=== PATIENT | female | born 1990 | race African-American/Black ===

== ENCOUNTER 2016-11-20 20:16 | Emergency (ER) | payer SELFPAY ==
[2016-11-20 20:23] VITALS: TEMP 99.3; BMI 25.7
[2016-11-20 22:30] LABS: URINE APPEARANCE CLEAR; URINE BILIRUBIN NEGATIVE (NEGATIVE); URINE BLOOD NEGATIVE (NEGATIVE); URINE COLOR DKYELLOW; URINE GLUCOSE (UA) NEGATIVE (NEGATIVE); URINE KETONE TRACE (NEGATIVE); URINE NITRITE NEGATIVE (NEGATIVE); URINE UROBILINOGEN 2.0 E.U/dl E.U./dl (0.2-1.0)
[2016-11-20 22:46] LABS: URINE LEUK ESTERASE TRACE (NEGATIVE); URINE PROTEIN 1+ (NEGATIVE)
[2016-11-20 22:50] LABS: URINE MUCUS MANY; URINE RBC 6 /hpf (0-3); URINE WBC 2 /hpf (3-5)
--- NOTE | 2016-11-20 22:55 | PDOC ---
History of Present Illness - General Chief Complaint: Sore Throat Stated Complaint: BODY ACHE/CHEST TIGHTNESS/COUGH/SORE THROAT Time Seen by Provider: 11/20/16 21:35 History Source: Patient Exam Limitations: No Limitations - History of Present Illness Initial Comments: 11/20/16 22:52 26yo Female patient presents to ED c/o sore throat, body aches, and subjective fever which began on Wednesday. Patient states she took NyQuil last night with minimal relief. Patient reports LNMP: 4-5 months ago, and that she recently had an last week. She denies CP, Abd pain, back pain, n/v/d, vaginal bleeding or any other complaints at this time. Neg flu vaccination reported. Timing/Duration: reports: week Severity: reports: moderate Possible Cause: Yes: no prior episodes Associated Symptoms: reports: cough, fever/chills, nasal congestion, sore throat. denies: chest pain/soreness, dizziness, earache, facial pain, headache , lightheadedness, muscle aches, nasal drainage, shortness of breath, sinus infection, wheezing, other Past History - Travel Traveled outside of the country in the last 30 days: No Close contact w/someone who was outside of country & ill: No - Past Medical History Allergies/Adverse Reactions: Allergies Allergy/AdvReac Type Severity Reaction Status Date / Time No Known Allergies Allergy Verified 11/20/16 20:21 Home Medications: Ambulatory Orders Naproxen [Naprosyn -] 500 mg PO BID #14 tablet 08/02/16 Azithromycin [Zithromax -] 250 mg PO DAILY #4 tablet 11/21/16 Asthma: Yes - Psycho/Social/Smoking Cessation Hx Suicidal Ideation: No Smoking History: Current every day smoker Number of Cigarettes Smoked Daily: 5 Information on smoking cessation initiated: No 'Breaking Loose' booklet given: 08/02/16 Respiratory Specific PMHX - Complaint Specific PMHX Angina: No Bronchitis: No Pneumonia: No Pulmonary Embolus: No TB (Tuberculosis): No Review of Systems - Review of Systems Able to Perform ROS?: Yes Is the patient limited [place]ander proficient: No Constitutional: Yes: Fever. No: Chills HEENTM: Yes: Nose Congestion, Throat Pain Respiratory: Yes: Cough. No: Orthopnea, Shortness of Breath, SOB at Rest, Stridor, Wheezing, Hemoptysis Cardiac (ROS): No: Chest Pain, Edema, Lightheadedness, Palpitations, Syncope, Chest Tightness ABD/GI: No: Blood Streaked Bowels, Constipated, Diarrhea, Nausea, Poor Appetite , Poor Fluid Intake, Rectal Bleeding, Vomiting : No: Burning, Dysuria, Discharge, Flank Pain, Hematuria, Pain Musculoskeletal: No: Back Pain, Neck Pain Integumentary: No: Bruising, Erythema, Rash Neurological: No: Headache, Numbness, Paresthesia, Seizure, Tremors, Weakness, Ataxia, Dizziness All Other Systems: Reviewed and Negative *Physical Exam - Vital Signs Last Vital Signs Temp Pulse Resp BP Pulse Ox 99.3 F 114 H 18 130/71 100 11/20/16 20:21 11/20/16 20:21 11/20/16 20:21 11/20/16 20:21 11/20/16 20:21 - Physical Exam General Appearance: Yes: Nourished, Appropriately Dressed. No: Apparent Distress, Mild Distress, Moderate Distress, Severe Distress HEENT: positive: EOMI, CLARE, Normal ENT Inspection, Normal Voice, Symmetrical, TMs Normal, Pharynx Normal, Nasal Congestion. negative: Pharyngeal Erythema, Tonsillar Exudate, Tonsillar Erythema, Rhinorrhea, TM Bulging, TM Dull, TM Erythema Neck: positive: Trachea midline, Supple. negative: Stridor, Lymphadenopathy (R) , Lymphadenopathy (L) Respiratory/Chest: positive: Lungs Clear, Normal Breath Sounds. negative: Respiratory Distress, Accessory Muscle Use, Labored Respiration, Rapid RR, Rhonchi, Stridor, Wheezing Cardiovascular: positive: Regular Rhythm, Regular Rate. negative: JVD, Murmur Gastrointestinal/Abdominal: positive: Normal Bowel Sounds. negative: Soft, Distended, Guarding, Rebound, Tenderness Musculoskeletal: positive: Normal Inspection. negative: CVA Tenderness, Decreased Range of Motion Extremity: positive: Normal Capillary Refill, Normal Inspection, Normal Range of Motion. negative: Swelling, Calf Tenderness, Erythema, Inflammation Integumentary: positive: Normal Color, Dry, Warm. negative: Rash, Swelling, Bruising Neurologic: positive: clinical education academic coordinator II-XII NML intact, Fully Oriented, Alert, Normal Mood/ Affect, Normal Response, Motor Strength / ED Treatment Course - LABORATORY CBC & Chemistry Diagram: 11/20/16 23:10 11/20/16 23:10 - ADDITIONAL ORDERS Additional order review: Laboratory Results 11/20/16 22:12 Urine Color Dkyellow Urine Appearance Clear Urine pH 5.0 D Ur Specific Page 1.032 Urine Protein 1+ H Urine Glucose (UA) Negative Urine Ketones Trace H Urine Blood Negative Urine Nitrite Negative Urine Bilirubin Negative Urine Urobilinogen 2.0 e.u/dl H Ur Leukocyte Esterase Trace H D Urine HCG, Qual Negative 11/20/16 22:10 Group A Strep Rapid Antigen - Final Throat *DC/Admit/Observation/Transfer Diagnosis at time of Disposition: Viral upper respiratory tract infection - Discharge Dispostion Disposition: HOME Condition at time of disposition: Stable Admit: No - Prescriptions Prescriptions: Azithromycin [Zithromax -] 250 mg PO DAILY #4 tablet - Patient Instructions Printed Discharge Instructions: DI for Viral Upper Respiratory Infection -- Adult Additional Instructions: FOLLOW UP WITH YOUR DOCTOR NEEDED. DRINK PLENTY FLUIDS, AND REST. Print Language: URDU
[2016-11-20 23:27] LABS: BASOPHIL 0.4 % (0-2.0); EOSINOPHIL 0.9 % (0-4.5); MCH 28.3 pg (25.7-33.7); MCHC 32.8 g/dl (32.0-36.0); MEAN CELL VOLUME 86.4 fl (80-96); MEAN PLT VOLUME 7.8 fl (7.5-11.1); NEUTROPHILS 65.3 % (42.8-82.8); PLATELET COUNT 324 K/MM3 (134-434); RDW 13.8 % (11.6-15.6); WHITE BLOOD COUNT 9.6 K/mm3 (4.0-10.0)
[2016-11-20 23:53] LABS: ALBUMIN 4.6 g/dl (3.4-5.0); ANION GAP 9 (8-16); BILIRUBIN,TOTAL 0.5 mg/dL (0.2-1.0); CALCIUM 9.9 mg/dL (8.5-10.1); CO2 27 mmol/L (21-32); CREATININE 0.7 mg/dL (0.55-1.02); GLUCOSE,RANDOM 106 mg/dL (74-106); SGOT/AST 12 U/L (15-37); SGPT/ALT 22 U/L (12-78); TOT PROT 8.6 g/dl (6.4-8.2)
[2016-11-20 23:54] LABS: ALK PHOS 76 U/L (45-117)
[2016-11-20] MEDS ORDERED: AZITHROMYCIN 250 MG TABLET (FP) PO ONE (23:59)
[2016-11-21] MEDS ORDERED: AZITHROMYCIN 250 MG TABLET (FP) ONE (00:03)
[2016-11-21 00:05] VITALS: BP 122/76; PULSE 92
== END 2016-11-21 00:05 | disposition home or self-care (01) ==
LOC: JERFT 20:16 → JER 20:16
DX: J06.9 Acute upper respiratory infection, unspecified (principal); B97.89 Other viral agents as the cause of diseases classified elsewhere
CPT/HCPCS: 36415; 71020-TC; 80053; 81003; 81015; 84703; 85025; 87070; 87430; 87804; 99282-25